=== PATIENT | male | born 1945 | race Caucasian/White ===

== ENCOUNTER 2017-07-17 23:13 | Inpatient (IN) ==
[2017-07-17] MEDS ORDERED: 0.9 % Sodium Chloride 500 ML IVC ONE (23:22)
[2017-07-17] MEDS ORDERED: Nitroglycerin 0.4 MG TAB.SUBL SL ONE (23:22)
[2017-07-17] MEDS ORDERED: Nitroglycerin 0.4 MG TAB.SUBL SL STA (23:22)
--- NOTE | 2017-07-17 23:26 | Emergency Department Note ---
Disposition Clinical Impression: NSTEMI (non-ST elevated myocardial infarction) Disposition: Admitted As Inpatient Condition: Fair Time of Disposition: 01:14 Chest Pain HPI - General Stated Complaint: chest pain Time Seen by Provider: 07/17/17 23:22 Source: patient, EMS Mode of arrival: EMS Limitations: no limitations Vital Signs Reviewed: Yes Nursing Notes Reviewed: Yes - History of Present Illness HPI Narrative: Patient presents to the ED the chief complaint of chest pain. Patient reports that his chest pain was onset about 3 days ago. Describes it as a deep pressure and ache in the middle of his chest that radiates to bilateral arms. Associated with nausea and diaphoresis and fatigue. No fever, chills, shortness of breath, abdominal pain, vomiting or diarrhea. No rash or pain or swelling in his legs. No history of coronary artery disease in the past. Does have hypertension, diabetes and smokes. Also states that he fell last week down several stairs at his home and landed flat on his back. States he thought his pain may have been coming from that, but the pain was occurring even at rest. No numbness, weakness or tingling in his extremities. No headache, changes in vision or neck pain. - Related Data Home Medications Medication Instructions Recorded Confirmed Aspirin 03/17/17 Atorvastatin 03/17/17 Citalopram 03/17/17 Dicyclomine 03/17/17 Hydrocodone-Acetamin 5-163/7.5 03/17/17 Hydroxyzine HCl 03/17/17 Lisinopril 03/17/17 Tizanidine HCl 03/17/17 Ventolin Hfa 03/17/17 Zantac 03/17/17 Previous Rx's Medication Instructions Recorded GuaiFENesin/Dextromethorphan [Gs 5 ml PO QID #118 ml 03/17/17 Tussin Dm Max Liquid] Montelukast [Singulair] 10 mg PO DAILY #30 tablet 03/17/17 PredniSONE [Deltasone] 20 mg PO DAILY #12 tablet 03/17/17 levoFLOXacin [Levaquin] 500 mg PO DAILY #10 tablet 03/17/17 Allergies Allergy/AdvReac Type Severity Reaction Status Date / Time Penicillins Allergy Itching Verified 03/17/17 14:10 Review of Systems: As reviewed in the HPI. All other systems reviewed are negative or normal. Chest Pain PMH - Past Medical History Medical history: Reports: COPD Surgical history: Reports: non-contributory - Social History Smoking Status: Current every day smoker Alcohol use: Reports: none Drug use: Reports: none Physical Exam - General Limitations: no limitations General appearance: alert, in no apparent distress - Head Head exam: atraumatic, normocephalic, normal inspection - ENT ENT exam: normal exam, normal oropharynx, mucous membranes moist - Neck Neck exam: Present: normal inspection, full ROM, trachea midline - Chest Chest inspection: Present: normal inspection, symmetric chest wall rise - Respiratory Respiratory exam: Present: normal lung sounds bilaterally - Cardiovascular Cardiovascular exam: Present: tachycardia, normal heart sounds - Abdominal Exam Abdominal exam: Present: soft, Non-Tender. Absent: tenderness, distention, guarding, rebound, rigidity - Extremities Exam Extremities exam: Present: normal inspection, full ROM. Absent: tenderness, pedal edema Course Course Narrative: Patient presenting with chest pain. Initial EKG via EMS. Did show some concerning ischemic changes inferiorly which have since resolved after nitroglycerin. His pain is currently a 4. We will re-dose nitroglycerin this evening get him pain-free. Cardiac workup initiated. Patient will be admitted. We will repeat an EKG is his chest pain worsens or does not improve. - Reevaluation(s) Reevaluation #1: Patient starting having chest pain again. Repeat EKG ordered. Will start on heparin and nitro gtt. Time: 00:46 Reevaluation #2: Repeat EKG did not meet STEMI criteria, but does have some ST depression inf. Troponin came back elevated at 1.40. Time: 01:12 Vital Signs Temperature 98.9 F 07/17/17 23:16 Pulse Rate 101 07/17/17 23:16 Respiratory Rate 20 07/17/17 23:16 Blood Pressure 135/66 07/17/17 23:16 O2 Sat by Pulse Oximetry 94 07/17/17 23:16 Temperature 98.4 F 07/18/17 02:15 Pulse Rate 73 07/18/17 03:44 Respiratory Rate 18 07/18/17 02:15 Blood Pressure 122/64 07/18/17 03:44 O2 Sat by Pulse Oximetry 96 07/18/17 02:15 Oxygen Delivery Oxygen Delivery Room Air Chest Pain - Medical Records Medical records reviewed: Yes I reviewed the patient's medical records. - Lab Data Lab results reviewed: Yes I reviewed the patient's lab results. Result diagrams: 07/18/17 00:40 07/18/17 00:40 Lab Results 07/18/17 07/18/17 07/18/17 Range/Units 00:40 00:40 00:40 WBC 9.4 (4.3-11.1) K/mcL RBC 3.94 L (4.19-5.50) M/mcL Hgb 12.5 L (12.9-16.9) g/dL Hct 37.8 (37.5-50.1) % MCV 95.9 (83.0-100.0) fL MCH 31.7 (28.0-33.3) pg MCHC 33.1 (31.6-35.5) g/dL RDW 13.6 (11.5-14.5) % Plt Count 132 L (140-400) K/mcL MPV 10.7 (9.4-12.4) fL Immature Gran % 0.2 (0-4) % Seg Neutrophils % 68.4 % Lymphocytes % 20.8 % Monocytes % 7.9 % Eosinophils % 2.3 % Basophils % 0.4 % Neutrophils # 6.4 (1.6-8.9) K/mcL Lymphocytes # 2.0 (0.6-4.6) K/mcL Monocytes # 0.7 (0.0-1.3) K/mcL Eosinophils # 0.2 (0.0-0.6) K/mcL Basophils # 0.0 (0.0-0.2) K/mcL PT 11.1 (9.4-12.1) Seconds INR 1.0 APTT 24.0 L (26.0-36.0) Seconds D-Dimer 647 H (0-500) ng/mLFEU Sodium (136-145) mEq/L Potassium (3.5-5.1) mEq/L Chloride (98-107) mEq/L Carbon Dioxide (23-29) mEq/L BUN (8-23) mg/dL Creatinine (0.70-1.30) mg/dL Est GFR ( Amer) (> 60) Est GFR (Non-Af Amer) (> 60) BUN/Creatinine Ratio (6-26) Glucose (70-105) mg/dL Calculated Osmolality (280-300) Calcium (8.6-10.3) mg/dL Troponin I (< 0.04) ng/mL 07/18/17 Range/Units 00:40 WBC (4.3-11.1) K/mcL RBC (4.19-5.50) M/mcL Hgb (12.9-16.9) g/dL Hct (37.5-50.1) % MCV (83.0-100.0) fL MCH (28.0-33.3) pg MCHC (31.6-35.5) g/dL RDW (11.5-14.5) % Plt Count (140-400) K/mcL MPV (9.4-12.4) fL Immature Gran % (0-4) % Seg Neutrophils % % Lymphocytes % % Monocytes % % Eosinophils % % Basophils % % Neutrophils # (1.6-8.9) K/mcL Lymphocytes # (0.6-4.6) K/mcL Monocytes # (0.0-1.3) K/mcL Eosinophils # (0.0-0.6) K/mcL Basophils # (0.0-0.2) K/mcL PT (9.4-12.1) Seconds INR APTT (26.0-36.0) Seconds D-Dimer (0-500) ng/mLFEU Sodium 139 (136-145) mEq/L Potassium 4.0 (3.5-5.1) mEq/L Chloride 108 H (98-107) mEq/L Carbon Dioxide 22 L (23-29) mEq/L BUN 17 (8-23) mg/dL Creatinine 1.18 (0.70-1.30) mg/dL Est GFR ( Amer) > 60 (> 60) Est GFR (Non-Af Amer) > 60 (> 60) BUN/Creatinine Ratio 14 (6-26) Glucose 166 H (70-105) mg/dL Calculated Osmolality 293 (280-300) Calcium 8.8 (8.6-10.3) mg/dL Troponin I 1.40 H* (< 0.04) ng/mL - Radiology Data Radiology results reviewed: Yes I reviewed the patient's radiology results. - EKG Data EKG attestation: Yes I reviewed and interpreted this EKG. EKG results narrative: Initial EKG@2319 shows sinus tach with PVCs, rate 102, NE interval 180, QRS 118 , QTC 411, left axis deviation, left anterior fascicular block, no acute ischemic changes. The EMS EKG did show some ischemic changes inferiorly which have since resolved after nitroglycerin. Heart Score - Score History: Highly Suspicious EKG: Significant ST-Depression Age: Greater than 65 Risk Factors: Equal/Greater than 3 risk factor or history of atherosclerotic disease Troponin: Greater than 3x normal limit HEART Score Total: 10 Critical Care Time Critical Care Time: Yes Total Critical Care Time: 30 Attestation: I personally spent ___30___ minutes devoted to the care of this critically ill patient. This time excludes the time for billable procedures. Guille.Sharron - Jennifer Situation: Demographics, MOA Background: Presenting Complaint, Relevant PMH, Meds, & Allergies Assessment: Vital Signs, Course and respsone to treatment, Exam Concerns, Patient/Family Expectation, Pertinant Lab Results, Outstanding Labs Recommendation: Recommendation based on pending studies, treatments, or consults S.B.ACarmenza Report Given to: Dr. Madan Rodriguez Repor Time: 01:14 Attestation Statement - Attestation Attestation: I examined this patient and my medical decision-making was reviewed with the Resident Physician. I agree with the documented findings, disposition and treatment plan as described except to the extent set forth below.
[2017-07-18 00:50] LABS: Basophils % 0.4 %; Eosinophils # 0.2 K/mcL (0.0-0.6); Eosinophils % 2.3 %; Hematocrit 37.8 % (37.5-50.1); Hemoglobin 12.5 g/dL (12.9-16.9); Immature Granulocytes % 0.2 % (0-4); Lymphocytes % 20.8 %; Mean Corpuscular HGB Conc 33.1 g/dL (31.6-35.5); Mean Corpuscular Hemoglobin 31.7 pg (28.0-33.3); Mean Corpuscular Volume 95.9 fL (83.0-100.0); Mean Platelet Volume 10.7 fL (9.4-12.4); Monocytes # 0.7 K/mcL (0.0-1.3); Monocytes % 7.9 %; Neutrophils # 6.4 K/mcL (1.6-8.9); Platelet Count 132 K/mcL (140-400); Red Blood Count 3.94 M/mcL (4.19-5.50); Red Cell Distribution Width 13.6 % (11.5-14.5); Segmented Neutrophils % 68.4 %
[2017-07-18] MEDS ORDERED: *HR* Heparin 5,000 UNIT/ML VIAL IVP ONE (00:51)
[2017-07-18 00:57] LABS: Prothrombin Time 11.1 Seconds (9.4-12.1)
[2017-07-18] MEDS ORDERED: Heparin 25,000 UNIT/500 ML D5W 25,000 UNIT/500 ML BAG IVC SCH (01:00)
[2017-07-18 01:07] LABS: BUN/Creatinine Ratio 14 (6-26); Blood Urea Nitrogen 17 mg/dL (8-23); Calcium 8.8 mg/dL (8.6-10.3); Carbon Dioxide 22 mEq/L (23-29); Chloride 108 mEq/L (98-107); Glucose 166 mg/dL (70-105); Osmolality,Calculated 293 (280-300); Sodium 139 mEq/L (136-145); eGFR For African Americans > 60 (> 60); eGFR For Non-African Americans > 60 (> 60)
[2017-07-18] MEDS: Nitroglycerin 25 MG/250 ML INFUS..BTL IVC SCH (01:13)
[2017-07-18] MEDS ORDERED: D5% in Water 1,000 ML IVC PRN ×2 (01:34→13:46)
[2017-07-18] MEDS ORDERED: Dextrose Gel 15 GM/37.5 ML TUBE PO PRN ×2 (01:34)
[2017-07-18] MEDS ORDERED: *HR* Dextrose 50 % in Water (Syg) 50 ML SYRINGE IVP PRN (01:34)
[2017-07-18] MEDS ORDERED: tiZANidine 4 MG TABLET PO PRN (01:34)
[2017-07-18] MEDS ORDERED: Ipratropium/Albuterol Neb 3 ML IH PRN (01:35)
[2017-07-18] MEDS ORDERED: Naloxone 0.4 MG/ML INJ IVP PRN (01:37)
--- NOTE | 2017-07-18 01:44 | Internal Med History&Physical ---
Date of Encounter: 07/18/17 Time of Encounter: 01:42 Internal Medicine - H&P: HPI Chief complaint: chest pain History of present illness: Mr. Piper is a 71 year old male with history of hypertension, COPD who smokes one half pack per day for more than 50 years, diabetes type 2 reported to be diet controlled who presents with an STEMI. He presents with chest pain with onset over the weekend. Described as sternal in location, sharp pressure-like sensation, 8-9 out of 10 at its worse, associated with bilateral arm soreness, frequency of every hour or two, lasting for 15-20 minutes each time, no associated with rest or exertion. Presented to the ED. Today because of persistent symptoms that is not improving. In the ED pain improve with nitroglycerin and heparin drip, bringing it down to a 4 out of 10 On review he reports falling down the stairs in the last week EKG personally reviewed with rate 76, ST-T depression most prominent in the inferior lateral leads. XR/XR chest 1V portable IMPRESSION: Cardiomegaly with clear lungs. Past Med Surg Social Fam HX - Past Medical History Medical history: COPD Psychiatric history: no psych history - Past Surgical History Surgical History: non-contributory - Social History Smoking Status: Current every day smoker Smokeless Tobacco Status: No Alcohol use: none Drug use: none Internal Medicine - H&P: Meds Aspirin 03/17/17 [History] Atorvastatin 03/17/17 [History] Citalopram 03/17/17 [History] Dicyclomine 03/17/17 [History] GuaiFENesin/Dextromethorphan [ Laly Dm Max Liquid] 5 ml PO QID #118 ml 03/17 [Rx] Hydrocodone-Acetamin 5-163/7.5 03/17/17 [History] Hydroxyzine HCl 03/17/17 [History] Lisinopril 03/17/17 [History] Montelukast [Singulair] 10 mg PO DAILY #30 tablet 03/17/17 [Rx] PredniSONE [Deltasone] 20 mg PO DAILY #12 tablet 03/17/17 [Rx] Tizanidine HCl 03/17/17 [History] Ventolin Hfa 03/17/17 [History] Zantac 03/17/17 [History] levoFLOXacin [Levaquin] 500 mg PO DAILY #10 tablet 03/17/17 [Rx] 3 Allergy/AdvReac Type Severity Reaction Status Date / Time Penicillins Allergy Itching Verified 03/17/17 14:10 All Systems PM: A 10-system review of systems was performed and is negative for pertinent findings except as documented above in the HPI. Review of systems: ROS 14 point review of systems reviewed as best as possible given presentation. Pertinent positive or negative as per HPI or otherwise reviewed as negative - Constitutional Vitals: Temp Pulse Resp BP Pulse Ox 98.9 F 72 16 139/63 93 07/17/17 23:16 07/18/17 00:28 07/18/17 01:32 07/18/17 01:32 07/18/17 00:28 Exam: General - AAO x 3 Psych - Appropriate affect/speech. No agitation Eyes - KRIS. Eye lids intact. No scleral icterus Heart - Sinus. RRR. S1 and S2 present. No added HS/murmurs appreciated. No elevated JVD appreciated. Lung - Adequate air entry b/l, No crackles/wheezes appreciated GI - Soft, non-tender. No hepatosplenomegaly/ascites. BS+ - No CVA/suprapubic tenderness or palpable bladder distension Skin - Intact. No rash/petechiae/ecchymosis. Warm extremities Internal Med - H&P Results - Labs CBC & Chem 7: 07/18/17 00:40 07/18/17 00:40 - Impressions ITS Impressions Chest X-Ray 07/18/17 23:22 IMPRESSION: Cardiomegaly with clear lungs. D/ / Tera Vieira MD / Tera Vieira MD Interpreting Provider: Tera Vieira MD - Assessment and plan (1) NSTEMI (non-ST elevated myocardial infarction) Current Visit: Yes Status: Acute Assessment and plan: troponemia, trend trop repeat EKG in a.m TTE card eval for C heparin and nitro gtt for now ASA add metoprolol (2) COPD (chronic obstructive pulmonary disease) Current Visit: Yes Status: Acute Assessment and plan: chronic Qualifiers: COPD type: chronic bronchitis Qualified Code(s): J41.0 - Simple chronic bronchitis (3) Tobacco abuse Current Visit: Yes Status: Acute Assessment and plan: nicotine patch cessation recommended (4) HTN (hypertension) Current Visit: Yes Status: Acute Assessment and plan: adjust cardiac meds as appropriate Qualifiers: Hypertension type: essential hypertension Qualified Code(s): I10 - Essential (primary) hypertension (5) DMII (diabetes mellitus, type 2) Current Visit: Yes Status: Acute Assessment and plan: reports to be diet controlled Check A1c and monitor CBG Qualifiers: Diabetes mellitus senior living insulin use: without senior living use Qualified Code(s): E11.9 - Type 2 diabetes mellitus without complications - Time Spent With Patient Total time spent is greater than 50% in coordination of care (as documented) at patient's floor/unit and/or counseling patient:
[2017-07-18] MEDS: 0.9 % Sodium Chloride 1,000 ML IVC SCH ×2 (03:31→21:04)
[2017-07-18] MEDS: Nicotine 21 MG PATCH.TD24 TD SCH ×2 (03:35→10:13)
--- NOTE | 2017-07-18 04:08 | Emergency Department Note ---
Disposition Clinical Impression: NSTEMI (non-ST elevated myocardial infarction) Disposition: Admitted As Inpatient Condition: Fair General Adult HPI - General Chief complaint: ED Chest Pain Stated complaint: chest pain Time Seen by Provider: 07/17/17 23:22 Source: patient, EMS Mode of arrival: EMS Limitations: no limitations - History of Present Illness Pain Scale: 0 - Related Data Home Medications Medication Instructions Recorded Confirmed Aspirin 03/17/17 Atorvastatin 03/17/17 Citalopram 03/17/17 Dicyclomine 03/17/17 Hydrocodone-Acetamin 5-163/7.5 03/17/17 Hydroxyzine HCl 03/17/17 Lisinopril 03/17/17 Tizanidine HCl 03/17/17 Ventolin Hfa 03/17/17 Zantac 03/17/17 Previous Rx's Medication Instructions Recorded GuaiFENesin/Dextromethorphan [Gs 5 ml PO QID #118 ml 03/17/17 Tussin Dm Max Liquid] Montelukast [Singulair] 10 mg PO DAILY #30 tablet 03/17/17 PredniSONE [Deltasone] 20 mg PO DAILY #12 tablet 03/17/17 levoFLOXacin [Levaquin] 500 mg PO DAILY #10 tablet 03/17/17 Allergies Allergy/AdvReac Type Severity Reaction Status Date / Time Penicillins Allergy Itching Verified 03/17/17 14:10 Past Medical History - Past Medical History Medical history: Reports: COPD Surgical history: Reports: non-contributory Psychiatric history: Reports: no psych history - Social History Smoking Status: Current every day smoker Smokeless Tobacco Status: No Alcohol use: Reports: none Drug use: Reports: none Physical Exam - General Limitations: no limitations General appearance: alert, in no apparent distress Course Vital Signs Temperature 98.9 F 07/17/17 23:16 Pulse Rate 101 07/17/17 23:16 Respiratory Rate 20 07/17/17 23:16 Blood Pressure 135/66 07/17/17 23:16 O2 Sat by Pulse Oximetry 94 07/17/17 23:16 Temperature 98.4 F 07/18/17 02:15 Pulse Rate 73 07/18/17 03:44 Respiratory Rate 18 07/18/17 02:15 Blood Pressure 122/64 07/18/17 03:44 O2 Sat by Pulse Oximetry 96 05/30/18 02:15 Oxygen Delivery Oxygen Delivery Room Air Medical Decision Making - Lab Data Result diagrams: 07/18/17 00:40 07/18/17 00:40 Lab Results 07/18/17 07/18/17 07/18/17 Range/Units 00:40 00:40 00:40 WBC 9.4 (4.3-11.1) K/mcL RBC 3.94 L (4.19-5.50) M/mcL Hgb 12.5 L (12.9-16.9) g/dL Hct 37.8 (37.5-50.1) % MCV 95.9 (83.0-100.0) fL MCH 31.7 (28.0-33.3) pg MCHC 33.1 (31.6-35.5) g/dL RDW 13.6 (11.5-14.5) % Plt Count 132 L (140-400) K/mcL MPV 10.7 (9.4-12.4) fL Immature Gran % 0.2 (0-4) % Seg Neutrophils % 68.4 % Lymphocytes % 20.8 % Monocytes % 7.9 % Eosinophils % 2.3 % Basophils % 0.4 % Neutrophils # 6.4 (1.6-8.9) K/mcL Lymphocytes # 2.0 (0.6-4.6) K/mcL Monocytes # 0.7 (0.0-1.3) K/mcL Eosinophils # 0.2 (0.0-0.6) K/mcL Basophils # 0.0 (0.0-0.2) K/mcL PT 11.1 (9.4-12.1) Seconds INR 1.0 APTT 24.0 L (26.0-36.0) Seconds D-Dimer 647 H (0-500) ng/mLFEU Sodium (136-145) mEq/L Potassium (3.5-5.1) mEq/L Chloride (98-107) mEq/L Carbon Dioxide (23-29) mEq/L BUN (8-23) mg/dL Creatinine (0.70-1.30) mg/dL Est GFR ( Amer) (> 60) Est GFR (Non-Af Amer) (> 60) BUN/Creatinine Ratio (6-26) Glucose (70-105) mg/dL Calculated Osmolality (280-300) Calcium (8.6-10.3) mg/dL Troponin I (< 0.04) ng/mL 07/18/17 Range/Units 00:40 WBC (4.3-11.1) K/mcL RBC (4.19-5.50) M/mcL Hgb (12.9-16.9) g/dL Hct (37.5-50.1) % MCV (83.0-100.0) fL MCH (28.0-33.3) pg MCHC (31.6-35.5) g/dL RDW (11.5-14.5) % Plt Count (140-400) K/mcL MPV (9.4-12.4) fL Immature Gran % (0-4) % Seg Neutrophils % % Lymphocytes % % Monocytes % % Eosinophils % % Basophils % % Neutrophils # (1.6-8.9) K/mcL Lymphocytes # (0.6-4.6) K/mcL Monocytes # (0.0-1.3) K/mcL Eosinophils # (0.0-0.6) K/mcL Basophils # (0.0-0.2) K/mcL PT (9.4-12.1) Seconds INR APTT (26.0-36.0) Seconds D-Dimer (0-500) ng/mLFEU Sodium 139 (136-145) mEq/L Potassium 4.0 (3.5-5.1) mEq/L Chloride 108 H (98-107) mEq/L Carbon Dioxide 22 L (23-29) mEq/L BUN 17 (8-23) mg/dL Creatinine 1.18 (0.70-1.30) mg/dL Est GFR ( Amer) > 60 (> 60) Est GFR (Non-Af Amer) > 60 (> 60) BUN/Creatinine Ratio 14 (6-26) Glucose 166 H (70-105) mg/dL Calculated Osmolality 293 (280-300) Calcium 8.8 (8.6-10.3) mg/dL Troponin I 1.40 H* (< 0.04) ng/mL Attestation Statement - Attestation Attestation: I examined this patient and my medical decision-making was reviewed with the Resident Physician. I agree with the documented findings, disposition and treatment plan as described except to the extent set forth below. 71-year-old male presents ED because recurrent chest pain. He has had substernal chest pain off the past 12-14 hours. Symptoms worsen tonight prompting him to come to the ED. Pain radiating into the right arm. No diaphoresis. Does complain of dyspnea with exertion. Complains of nausea but no vomiting. He was given sublingual nitroglycerin per EMS with transient relief. No fevers or chills. No productive cough. Patient is a pack-a-day smoker for about 50 years. Patient is awake alert and oriented. No apparent physiologic distress. Chest wall is nontender. Lungs are clear to auscultation bilaterally. Trachea is midline. Abdomen soft, nondistended and nontender. Extremity is warm and dry without edema or calf tenderness. EKG exhibit's ST depression along the high lateral leads suggestive of acute ischemia. He had recurring pain on the ED and was started on IV nitroglycerin and heparin. Initial troponin Was elevated to 1.5 The high probability of a clinically significant, sudden or life threatening deterioration of the [cardiovascular] system(s) required my full and direct attention, intervention and personal management. The aggregate critical care time was [32] minutes. This time is in addition to time spent performing reported procedures but includes the following: [x] Data Review and interpretation [x] Patient assessment and monitoring of vital signs [x] Documentation [x] Medication orders and management
[2017-07-18] MEDS ORDERED: Acetaminophen 325 MG TABLET PO PRN (05:57)
[2017-07-18 08:35] LABS: Estimated Average Glucose 160 mg/dl; Hemoglobin A1C 7.2 %
[2017-07-18] MEDS ORDERED: 0.9 % Sodium Chloride 1,000 ML ONE ×2 (08:35→09:15)
[2017-07-18] MEDS ORDERED: Verapamil 5 MG/2 ML VIAL ONE (08:35)
[2017-07-18] MEDS ORDERED: Nitroglycerin 1,000 MCG/10 ML VIAL IV ONE (08:36)
[2017-07-18] MEDS ORDERED: ISOVUE-370 200 ML INFUS..BTL IV ONE ×2 (08:36→09:16)
[2017-07-18] MEDS ORDERED: Heparin 1,000 UNITS/500 mL 500 ML ONE (08:36)
[2017-07-18] MEDS ORDERED: *HR* Heparin 10,000 UNIT/10 ML VIAL ONE (08:36)
--- NOTE | 2017-07-18 08:38 | Cardiology Consult Note ---
<Valdez Jose - Last Filed: 07/18/17 08:20> Date of Encounter: 07/18/17 Time of Encounter: 08:20 Assessment and Plan (1) NSTEMI (non-ST elevated myocardial infarction) Current Visit: Yes Status: Acute C/o continued chest pressure, diaphoresis, and SOB. EKG changes concerning for ischemia in anterio/lateral leads. LHC is recommended for further evaluation. Cardiac risk factors include heavy tobacco use, HTN, DM type II, and PVD. LHC R/B/A discussed and he agrees to proceed. Continue heparin gtt. Asa, statin. Hold BB, HR in the 50's. (2) Tobacco abuse Current Visit: Yes Status: Acute Smoking cessation discussed. Smokes 1.5 pk day for 56 years. (3) HTN (hypertension) Current Visit: Yes Status: Acute B/p acceptable. Qualifiers: Hypertension type: essential hypertension Qualified Code(s): I10 - Essential (primary) hypertension (4) DMII (diabetes mellitus, type 2) Current Visit: Yes Status: Acute Qualifiers: Diabetes mellitus custodial insulin use: without long winder tender use Qualified Code(s): E11.9 - Type 2 diabetes mellitus without complications Discussion w patient/family: The assessment and plan as outlined above was discussed with the patient and/or family members who expressed understanding and agreement. All questions were answered. Thank you for involving us in the care of your patient. Please call with any questions. History of Present Illness Consult date: 07/18/17 Requesting physician: Jesus Gil Consult reason: NSTEMI Chief complaint: Chest pain, SOB, diaphoresis History of present illness: Mr. Piper is a 71 year old male with past medical history of DM type II, HTN, HLD, COPD, and PVD who presents from home with the c/o right sided chest pressure. States that his chest pain increased over the past three days. His pain feels like a heavy pressure over his right chest. He has pain in his bilateral arms and associates his pain with SOB and diaphoresis. His work-up revealed elevated troponin up to 1.4. Initial ekg showed SR with mild ST depression in the anterior leads. Overnight he developed increased chest pain and re-peat EKG showed ST depression in the lateral leads and T/ST wave changes in the inferior leads. On my exam he continues to have chest pressure and is diaphoretic. He is currently being treated with NTG GTT IV and heparin gtt. Past Med Surg Social Fam HX - Past Medical History Attestation: Yes The following information was validated with the patient. Medical history: diabetes, hyperlipidemia, hypertension Psychiatric history: no psych history - Past Surgical History Surgical History: non-contributory - Social History Smoking Status: Current every day smoker Packs per day: 1.5 Smokeless Tobacco Status: No Alcohol use: none Drug use: none - Family History Mother Name: Yasmin Piper Living Status: Age at : 87 Cause of : NC and cancer Hx Family Cardiac Disorders: Yes Hx Family Cancer: Yes (throat cancer) Medications and Allergies Albuterol Sulfate [Albuterol Inhaler] 2 puff IH Q4H PRN 07/18/17 [History] Atorvastatin [Lipitor] 40 mg PO HS 07/18/17 [History] Citalopram Hydrobromide [Citalopram HBr] 40 mg PO DAILY 07/18/17 [History] Dicyclomine [Bentyl] 10 mg PO QID 07/18/17 [History] HYDROcodone/Acet 7.5/325 mg [[place] 7.5-325 mg] 1 tab PO QID 07/18/17 [History] Lisinopril [Lisinopril] 2.5 mg PO DAILY 07/18/17 [History] 3 Allergy/AdvReac Type Severity Reaction Status Date / Time Penicillins Allergy Itching Verified 07/18/17 08:36 All Systems Review: The remainder of the systems were reviewed and are negative Physical Examination Vital Signs, Last 4 Hours Temp Pulse Resp BP Pulse Ox 07/18/17 07:13 59 128/65 07/18/17 06:45 97.9 F 56 14 117/77 100 07/18/17 06:42 168/80 07/18/17 05:47 59 141/59 07/18/17 05:32 98.4 F 61 118/65 General: Conversant, Other (ill appearing, diaphoretic) HEENT: Atraumatic, Normocephaly, Mucus Membranes Moist Neck: No JVD, Normal carotid pulses Cardiac: Reg Rate and Rhythm, Normal S1 and S2, No Murmur Lungs: Normal Breath Sounds, No Wheeze, Rales, Rhonchi Neuro: Alert and responsive, No focal deficits noted Abdomen: Soft, Non-Tender Skin: No rashes noted on visualized skin Musculoskeletal: No Chest Wall Tenderness Extremities: No Clubbing, No Cyanosis, No Edema, Normal Pulses Results 07/18/17 00:40 07/18/17 00:40 - EKG Interpretation EKG results cardiology: personally reviewed Consult Discharge Plan - Plan Referrals: Ranjana Becerra, UNIT COORDINATOR [Primary Care Provider] - <Carlos Sosa - Last Filed: 07/18/17 10:48> Date of Encounter: 07/18/17 - Attending Attestation I have personally performed a face to face evaluation on this patient. I have reviewed and agree with the care plan. History and Exam by me shows: 71 YOM s/p PCI to the RCA after a NSTEMI with peak trop 17 Chest pain free doing well May consider PE work up Assessment and Plan Discussion w patient/family: The assessment and plan as outlined above was discussed with the patient and/or family members who expressed understanding and agreement. All questions were answered. Thank you for involving us in the care of your patient. Please call with any questions. History of Present Illness History of present illness: Mr. Piper is a 71 year old male All Systems Review: The remainder of the systems were reviewed and are negative Physical Examination Vital Signs, Last 4 Hours Temp Pulse Resp BP Pulse Ox 07/18/17 10:20 56 17 133/82 100 07/18/17 10:00 97.4 F L 61 16 129/67 99 07/18/17 07:13 59 128/65 Results 07/18/17 00:40 07/18/17 00:40 Lab Results 07/18/17 07/18/17 07:42 07:42 APTT 42.0 H D Troponin I 17.32 H*
[2017-07-18] MEDS ORDERED: *HR* FentaNYL (PF) 100 MCG/2 ML VIAL ONE ×2 (08:48→09:26)
[2017-07-18] MEDS ORDERED: *HR* Midazolam HCl 2 MG/2 ML VIAL ONE ×2 (08:49→09:00)
--- NOTE | 2017-07-18 08:52 | Pre-Sedation Evaluation ---
Pre-sedation evaluation - Pre-sedation checklist Date of procedure: 07/18/17 Procedure: Heart cath Recent Vitals: Last Vital Signs Temp 97.9 F 07/18/17 06:45 Pulse 59 07/18/17 07:13 Resp 14 07/18/17 06:45 BP 128/65 07/18/17 07:13 Pulse Ox 100 07/18/17 06:45 H&P (including ROS) documented in medical record: Yes Previous reaction to sedatives/anesthetics: No Dietary Status: NPO after Midnight Dentition: No loose teeth or bridges ASA Classification *see protocol: CLASS II-Mild systemic disease Plan of Care: Pt appropriate candidate for procedure/moderate/conscious sedation , Risks/benefits of procedure/sedation discussed w/ patient/family
[2017-07-18] MEDS ORDERED: Tirofiban 12.5 MG/250ML 12.5 MG/250 ML BAG ONE (09:10)
[2017-07-18] MEDS ORDERED: *HR* Ticagrelor 90 MG TABLET ONE (09:41)
[2017-07-18] MEDS ORDERED: *HR* HYDROcodone/Acet 5/325 mg TABLET PO PRN (09:41)
[2017-07-18] MEDS ORDERED: Tirofiban 12.5 MG/250ML 12.5 MG/250 ML BAG IVC SCH (09:45)
--- NOTE | 2017-07-18 09:45 | Event Note ---
Date of Encounter: 07/18/17 Time of Encounter: 09:45 - Cardiology Event Note sp PCI RCA LOREN x 3 overlapping. No LV gram, contrast given 75cc. If clinical suspicion persists for PE, limited contrast given so CT PE protocol can be done today. Heparin drip can be resumed immediately if PE as intervention was transradial. Brilinta and aggrastat given. Fu in clinic with me.
--- NOTE | 2017-07-18 10:11 | Invasive Diagnostic Lab Proc ---
Name: Castro Piper Date of Study: 07/18/2017 Date: 1945 Ht: 72.8in Medical Record#: [id number] Age: 71 Wt: 251.33lb Gender: Male BSA: 2.37 Order #: [id number] BMI: 33.31 Physicians Procedure Physician: Hao Castañeda MD, [facility] Referring MD: Referring MD: Staff Name Position Time In Tiana Abbott RN Anatomy Teacher 08:48 AM Yared Perales RN Monitor 08:48 AM Marta Morton RT (R) Scrub 08:48 AM Indications Indication Non-Stemi Procedures Performed Procedure L HRT ARTERY/VENTRICLE ANGIO PRQ CARD BM STENT W/ANGIO 1 VSL Pre-Procedure Checklist Informed consent is complete signed and on chart. H&P is on chart. ID band is on and ID verified with patient. Patient NPO for procedure The procedure was described for the patient and questions were answered. ECG is on chart. Rhythm: NSR Plan of Care Patient will tolerate the procedure without complications. Adequate level of comfort will be maintained. Hemodynamics will remain stable Patient will recover from procedure without complications. Respiratory function will be maintained. Cardiac rhythm will remain stable. Patient temperature will be maintained. Patient and/or family have verbalized understanding of the procedure. Patient Education Chief Complaint/Reason for Test: Cardiac Cath Developmental Category: Geriatric (65+ years) Developmentally Appropriate for Age: Yes Learning Barriers: None Education Needs: Procedure Education Method: Verbal Information Taught: Cardiac Cath Educational Evaluation: Able to repeat information Intravenous Access Time IV Size Location DC'd Fluid/Drip Rate Units RN 18g 1 1/4" Patent On Arrival Lt Hand 0.9NaCl 25 ml/hr Tiana Abbott RN 18g 1 1/4" Patent On Arrival Rt Antecubital Allergies Penicillins Penicillin Tetracycline TERAMYCIN Vital Signs Time BP (mmHg) HR (bpm) O2 Sat. RR (bpm) LOC 08:46 AM / % 5 = Fully awake and oriented or at pre-proc level 08:46 AM / % 4 = Oriented but drowsy 08:48 AM 161 / 83 70 98 % 16 08:53 AM 145 / 75 69 93 % 12 08:58 AM 139 / 73 69 93 % 22 09:03 AM 100 / 85 65 92 % 23 09:08 AM 114 / 63 68 95 % 17 09:13 AM 133 / 69 66 97 % 15 09:18 AM 124 / 61 68 95 % 13 09:23 AM 132 / 69 66 93 % 12 09:28 AM 125 / 69 69 93 % 20 09:33 AM 136 / 50 67 96 % 13 Procedural Medications Time Medication Dose Units Method Given By 08:48 AM Oxygen 2 L/min nasal cannula Tiana Abbott RN 08:49 AM Versed 2 mg Intravenous [place]Tiana singh RN 08:49 AM Fentanyl 50 mcg Intravenous MilenaTiana singh RN 08:58 AM Lidocaine 2% 3 ml Subcutaneous Hao Castañeda MD, FAC 08:59 AM Heparin 4000 units Nitroglycerin 200 mcg Verapamil 2.5 mg Intraarterial Hao Castañeda MD, FACC 09:00 AM Versed 1 mg Intravenous [place]iana singh RN 09:01 AM Fentanyl 25 mcg Intravenous Tiana Abbott RN 09:11 AM Aggrastat Bolus: 58.5 ml Intravenous MilenaTiana singh RN 09:11 AM Fentanyl 25 mcg Intravenous Tiana Abbott RN 09:13 AM Aggrastat 12.5mg/250ml 21 ml Intravenous MilenaTiana singh RN 09:14 AM Heparin 3000 units Intravenous Tiana Abbott RN 09:16 AM Nitroglycerin 200 mcg Intracoronary Hao Castañeda MD 09:21 AM Nitroglycerin 200 mcg Intracoronary Hao Castañeda MD 09:24 AM Versed 1 mg Intravenous MilenaTiana singh RN 09:25 AM Fentanyl 25 mcg Intravenous MilenaTiana singh RN 09:31 AM Fentanyl 25 mcg Intravenous Tiana Abbott RN 09:33 AM Fentanyl 25 mcg Intravenous Tiana Abbott RN 09:34 AM Nitroglycerin 150 mcg Intraarterial Hao Castañeda MD 09:39 AM Brilinta 180 mg Orally Tiana Abbott RN ASA Classification: CLASS II- Mild systemic disease (i.e. well-controlled diabetes, hypertension, asthma, cigarette smoking) Marcel Score Preprocedure Postprocedure Activity 2- Moves 4 extremities sustained head lift Activity Circulation 2- SBP +/= 20 points of pre-anesthetic level Circulation Consciousness 2- Awake and alert oriented x 3 Consciousness O2 Saturation 2- Able to maintain O2 satruation of 92% on room air O2 Saturation Respiratory 2- Able to deep breathe and cough well Respiratory Total Score 10 Total Score Contrast Agent: Isovue Diagnostic Contrast: 76 ml Total Contrast: 76 ml Fluoro Dose: 918 mGy Activated Clotting Time Time Seconds to Clot 09:13 AM 159 Procedure Log Time Note Enter By 08:22 AM CathStat 08:45 AM Pt arrived to dental laboratory manager 1 at 08:45 cedwards 08:45 AM Patient charges- Angio tray pack, Navilyst 3mm J, Pulse Oximetry and ACIST tubing and transducer cedwards 08:45 AM IV Supplies used: J loop Angio Cath. cedwards 08:45 AM Hair removed from procedure site in procedure lab using clippers. Right wrist prepped with Chloraprep by Marta Morton (Margarette), then patient was draped. Skin intact. cedwards 08:45 AM Physician arrived 08:45 cedwards 08:45 AM Meet and greet completed cedwards 08:45 AM Sign in performed according to hospital policy. cedwards 08:45 AM Procedure start 08:45 cedwards 08:46 AM Time: 08:46 Patient comfortable and pain free: Yes cedwards 08:46 AM Time: 08:46LOC: 5 = Fully awake and oriented or at pre-proc level cedwards 08:46 AM Clinical Presentation: Non-STEMI cedwards 08:46 AM Case Start 08:47 AM [ Start or Stop Vital ] 08:47 AM Vitals capture started with the following parameters, Patient=Adult, Interval=5 min, Initial Hyyifvdr=868 mmHg, Deflation Rate=3 mmHg, Cuff placed on Right Arm 08:47 AM Recorded ECG: HR=73 Condition=Condition 1 08:48 AM HR=70 bpm, LIXU=063/83 mmhg, SpO2=98.0 %, Resp=16 B/min 08:48 AM Time: 08:48 Oxygen on at 2 L/min per nasal cannula by Tiana Abbott RN cedwards 08:48 AM Tiana Abbott RN Position: Anatomy Teacher Time in: 08:48 cedwards 08:48 AM Yared Perales RN Position: Monitor Time in: 08:48 cedwards 08:49 AM Marta Morton (R) Position: Scrub Time in: 08:48 cedwards 08:49 AM Time: 08:49 Versed 2 mg Intravenous Given by Tiana Abbott RN cedwards 08:49 AM Time: 08:49 Fentanyl 50 mcg Intravenous Given by Tiana Abbott RN cedwards 08:53 AM HR=69 bpm, XKEX=530/75 mmhg, SpO2=93.0 %, Resp=12 B/min, Comment=NSR 08:58 AM Time out performed according to hospital policy cedwards 08:58 AM HR=69 bpm, NJOQ=829/73 mmhg, SpO2=93.0 %, Resp=22 B/min 08:58 AM Time: 08:58 3 ml Lidocaine 2% to right radial Subcutaneous Given by Hao Castañeda MD, [facility] cedwards 08:59 AM Access obtained by percutaneous puncture. 5/6Fr 10cm Terumo Glidesheath sheath placed in right Radial artery. [id number] cedwards 08:59 AM Time: 08:59 Patient given 4,000 units Heparin, 200 mcg Nitroglycerin, and 2.5 mg Verapamil Intraarterial by Hao Castañeda MD, [facility]. This is given to reduce risk of vessel spasm and thrombosis. cedwards 09:00 AM 5Fr Francisco Radial catheter inserted over the wire [facility] cedwards 09:00 AM Time: 09:00 Versed 1 mg Intravenous Given by Tiana Abbott RN cedwards 09:01 AM Time: 09:01 Fentanyl 25 mcg Intravenous Given by Tiana Abbott RN c[place] 09:01 AM Time: 08:46LOC: 4 = Oriented but drowsy cedwards 09:01 AM Time: 08:46 Patient comfortable and pain free: Yes cedwards 09:02 AM LCA angiography performed in multiple views. cedwards 09:03 AM HR=65 bpm, HCJO=897/85 mmhg, SpO2=92.0 %, Resp=23 B/min 09:04 AM RCA angiography performed in multiple views. cedwards 09:05 AM Catheter removed cedwards 09:06 AM Coronary Dominance: right cedwards 09:07 AM Recorded Pressure: LV, HR=72, Condition=Condition 1 (Left Ventricle) LV 135/3/19 09:07 AM 5Fr Pigtail catheter inserted over the wire [facility] cedwards 09:08 AM Catheter selectively placed in left ventricle cedwards 09:08 AM Pressures only cedwards 09:08 AM HR=68 bpm, QSCZ=798/63 mmhg, SpO2=95.0 %, Resp=17 B/min 09:08 AM 6Fr JR 4 Runway guide catheter was used to cannulate the PCI vessel successfully. reused? No cedwards 09:09 AM Pressure channel 1 zero failed. 09:09 AM Pressure channel 1 zeroed. 09:09 AM Recorded Pressure: LV, Ao, HR=68, Condition=Condition 1 (Left Ventricle) LV 163/16/33, (Aorta) Ao 137/50/87 09:10 AM .014 [place] 190cm guide wire across target lesion- successful. reused? No cedwards 09:10 AM Inflation device was opened. cedwards 09:11 AM Time: 09:11 Aggrastat Bolus: 58.5 ml Intravenous Given by Tiana Abbott RN Brooks pump cedwards 09:11 AM Time: 09:11 Fentanyl 25 mcg Intravenous Given by Tiana Abbott RN cedwards 09:12 AM Recorded Pressure: Ao, HR=65, Condition=Condition 1 (Aorta) Ao 70/17/39 09:12 AM Recorded Pressure: Ao, HR=65, Condition=Condition 1 (Aorta) Ao 136/71/95 09:13 AM HR=66 bpm, JELO=241/69 mmhg, SpO2=97.0 %, Resp=15 B/min 09:13 AM Time: 09:13 Aggrastat 12.5mg/250ml 21 ml Intravenous Given by Tiana Abbott RN Brooks pump cedwards 09:13 AM At 09:13 the ACT was 159 seconds. cedwards 09:14 AM 2.25mm x 20mm Synergy drug-eluting stent across target lesion- successful Lot #[id number] cedwards 09:14 AM Time: 09:14 Heparin 3000 units Intravenous Given by Tiana Abbott RN cedwards 09:15 AM Stent deployed @ 12 arthur for 14 seconds cedwards 09:16 AM Time: 09:01 Patient comfortable and pain free: Yes cedwards 09:16 AM Time: 09:16 Nitroglycerin 200 mcg Intracoronary Given by Hao Castañeda MD cedwards 09:17 AM Stent delivery system removed intact. cedwards 09:18 AM Lesion found in Proximal RCA. Pre Stenosis: 80 Pre TRINITY Flow: 3: Complete and Brisk Flow/Perfusion cedwards 09:18 AM HR=68 bpm, CHXD=062/61 mmhg, SpO2=95.0 %, Resp=13 B/min 09:18 AM Lesion found in Distal RCA. Pre Stenosis: 80 Pre TRINITY Flow: 3: Complete and Brisk Flow/Perfusion cedwards 09:18 AM Lesion found in Proximal LAD. Pre Stenosis: 60 Pre TRINITY Flow: 3: Complete and Brisk Flow/Perfusion cedwards 09:19 AM 2.25mm x 32mm Synergy drug-eluting stent across target lesion- successful Lot #[id number] cedwards 09:19 AM Lesion found in Mid LAD. Pre Stenosis: 70 Pre TRINITY Flow: 3: Complete and Brisk Flow/Perfusion cedwards 09:20 AM Stent deployed @ 16 arthur for 22 seconds cedwards 09:20 AM Stent delivery system removed intact. cedwards 09:21 AM Time: 09:21 Nitroglycerin 200 mcg Intracoronary Given by Hao Castañeda MD cedwards 09:22 AM 2.25mm x 20mm stent balloon reinserted used to measure lesion cedwards 09:23 AM HR=66 bpm, ECFE=558/69 mmhg, SpO2=93.0 %, Resp=12 B/min 09:23 AM Stent balloon removed cedwards 09:24 AM 2.5mm x 28mm Synergy drug-eluting stent across target lesion- successful Lot #[id number] cedwards 09:25 AM Time: 09:24 Versed 1 mg Intravenous Given by Tiana Abbott RN cedwards 09:25 AM Time: 09:25 Fentanyl 25 mcg Intravenous Given by Tiana Abbott RN cedwards 09:25 AM Recorded Pressure: Ao, HR=65, Condition=Condition 1 (Aorta) Ao 125/85/103 09:26 AM Stent deployed @ 16 arthur for 26 seconds cedwards 09:27 AM Stent delivery system removed intact. cedwards 09:28 AM 2.5 mm x 20mm NC Emerge balloon across target lesion- successful. reused? No cedwards 09:28 AM HR=69 bpm, QDVO=203/69 mmhg, SpO2=93.0 %, Resp=20 B/min 09:29 AM Balloon inflated @ 16 arthur for 18 seconds cedwards 09:30 AM Balloon inflated @ 18 arthur for 10 seconds cedwards 09:30 AM Balloon inflated @ 18 arthur for 9 seconds cedwards 09:30 AM Balloon catheter removed intact. cedwards 09:31 AM Time: 09:31 Fentanyl 25 mcg Intravenous Given by Tiana Abbott RN cedwards 09:32 AM Guide wire removed intact. cedwards 09:33 AM HR=67 bpm, KFRY=972/50 mmhg, SpO2=96.0 %, Resp=13 B/min 09:33 AM Time: 09:33 Fentanyl 25 mcg Intravenous Given by Tiana Abbott RN cedwards 09:34 AM Guide catheter removed intact. cedwards 09:34 AM Time: 09:34 Nitroglycerin 150 mcg Intraarterial Given by Hao Castañeda MD cedwards 09:36 AM Procedure completed at 09:36 cedwards 09:36 AM Did you address TRINITY flow and Dominance? Yes cedwards 09:37 AM Sign out completed: Radiation Dose 917.87 mGy Fluoro Time: 6.9 Isovue 370 - 200ml contrast 75.5 ml given by Hao Castañeda MD, FAC. Complications: NoneCardiac Rehab Consult needed: YesConfirmed administered medications: No cedwards 09:37 AM Isovue 370 - 200ml,1 Bottle(s) used. cedwards 09:37 AM 10 ml air in Vasc Band. cedwards 09:37 AM Estimated Blood Loss: minimal cedwards 09:37 AM Post ECG NSR cedwards 09:38 AM Post Blood Pressure 125/85 cedwards 09:38 AM Information taught Cardiac Cath, PCI, and Vasc Band cedwards 09:38 AM Education needs Procedure, Plan of Care, and Disease Process cedwards 09:38 AM Learning barriers :None cedwards 09:38 AM Education Methods Verbal cedwards 09:38 AM Education evaluation Able to repeat information cedwards 09:38 AM Site status No bleeding/hematoma - Rt Wrist as reported by Tiana Abbott RN at 09:38 cedwards 09:39 AM Vitals capture stopped. 09:40 AM Time: 09:39 Brilinta 180 mg Orally Given by Tiana Abbott RN cedwards 09:40 AM Plavix, Effient or Brilinta given Yes cedwards 09:40 AM No Family cedwards 09:40 AM Fluoro Time: 6.9 cedwards 09:41 AM Isovue 370 - 200ml contrast 75.[address] Castañeda. cedwards 09:41 AM Radiation Dose 917.87 mGy cedwards 09:43 AM Lesion found in Mid RCA. Pre Stenosis: 70 Pre TRINITY Flow: 3: Complete and Brisk Flow/Perfusion cedwards 10:01 AM Patient out of room: 09:50 cedwards 10:02 AM Report given to RN Pt taken to Room #22. 09:50 cedwards Complications Complication None Hemodynamics Pressures Site Systolic/A Wave Diastolic/V Wave Mean LV 135 3 19 LV 163 16 33 AO 137 50 87 AO 70 17 39 AO 136 71 95 AO 125 85 103 Post Procedure Information Blood Pressure: 125/85 mmHg Rhythm: NSR Closure Device Time Device Success/Fail 07/18/2017 9:45:00 AM Site Checks Time Location Status Staff Sheath In? Note 09:38 AM Rt Wrist No bleeding/hematoma Tiana Abbott RN Pulses Time Site Pre-Procedure Post-Procedure Note Bilateral DP & PT 2+ Bilateral radial 2+ Updated by Yared Perales RN on 07/18/2017 10:02:25 AM electronically signed on 07/18/2017 10:03:29 AM with status of Final
[2017-07-18] MEDS: Famotidine 20 MG TABLET PO SCH ×2 (10:13→20:39)
[2017-07-18] MEDS: Aspirin 81 MG TAB.CHEW PO SCH (10:13)
--- NOTE | 2017-07-18 13:31 | Internal Med Progress Note ---
Date of Encounter: 07/18/17 Time of Encounter: 13:28 - Assessment and plan (1) NSTEMI (non-ST elevated myocardial infarction) Current Visit: Yes Status: Acute Assessment and plan: troponin peaked at 17. 5 [facility] with intestinal PCI to RCA LOREN 3 overlapping. Cont ASA, brilinta, statin, BB. TTE pending (2) COPD (chronic obstructive pulmonary disease) Current Visit: Yes Status: Acute Assessment and plan: presented with chest pain or shortness of breath. [facility] as noted above. Still with persistent dyspnea post catheterization. 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 Low suspicion for pulmonary embolism however will check CTA given hx VTE, persistent SOB. No wheezing to suggest COPD exacerbation. Qualifiers: COPD type: chronic bronchitis Qualified Code(s): J41.0 - Simple chronic bronchitis (3) Tobacco abuse Current Visit: Yes Status: Acute Assessment and plan: nicotine patch cessation recommended (4) HTN (hypertension) Current Visit: Yes Status: Acute Assessment and plan: per hx. BP controlled. Cont BP medications Qualifiers: Hypertension type: essential hypertension Qualified Code(s): I10 - Essential (primary) hypertension (5) DMII (diabetes mellitus, type 2) Current Visit: Yes Status: Acute Assessment and plan: per hx. Diet controlled. Hgb A1c pending Qualifiers: Diabetes mellitus senior living insulin use: without senior living use Qualified Code(s): E11.9 - Type 2 diabetes mellitus without complications (6) DVT prophylaxis Current Visit: Yes Status: Acute Assessment and plan: heparin - Time Spent With Patient Total time spent is greater than 50% in coordination of care (as documented) at patient's floor/unit and/or counseling patient: - Subjective Interval history: Seen and examined at bedside, patient is new to me. Information obtained from chart review and patient report. He just returned from left heart catheterization. Says he feels better overall but still having significant dyspnea. States his heart is taking in deep breath. No chest pain. - Constitutional Vitals: Temp Pulse Resp BP Pulse Ox 97.5 F L 56 14 119/66 100 07/18/17 11:24 07/18/17 11:24 07/18/17 11:24 07/18/17 11:24 07/18/17 11:24 General appearance: Present: mild distress (appears uncomfortable), A&O X 3, pleasant - Head Head exam: Present: atraumatic, normocephalic - Eye Eye exam: Present: PERRL, conjuntiva pink, sclera anicteric Pupils: Present: PERRL - Neck Neck exam general surgery: Present: supple, trachea midline. Absent: lymphadenopathy - Respiratory Respiratory exam: Present: CTAB. Absent: accessory muscle use, rales, rhonchi, wheezes - Cardiovascular Cardiovascular exam: Present: RRR, +S1, +S2. Absent: diastolic murmur, gallop, rubs, systolic murmur - GI/Abdominal GI/Abdominal exam: Present: normal bowel sounds, soft, no peritoneal signs. Absent: distended, tenderness - Extremities Exam Extremities exam: Present: warm, radial pulses palpable and symmetrical. Absent : calf tenderness, cyanotic, pedal edema - Neurological Exam Neurological exam: Present: CN II-XII intact, oriented X3, no focal deficits. Absent: pronater drift, facial droop, speech deficit - Skin Skin exam: Present: dry, intact Internal Medicine: Result - Labs CBC & Chem 7: 07/18/17 00:40 07/18/17 00:40 Labs: Cardiac Enzymes 07/18/17 Range/Units 07:42 Troponin I 17.32 H* (< 0.04) ng/mL - ABG Interpretation ABG results: PT/INR, D-dimer PT 11.1 Seconds (9.4-12.1) 07/18/17 00:40 D-Dimer 647 ng/mLFEU (0-500) H 07/18/17 00:40 - Impressions Impressions Chest X-Ray 07/18/17 23:22 IMPRESSION: Cardiomegaly with clear lungs. D/ / Tera Vieira MD / Tera Vieira MD Interpreting Provider: Tera Vieira MD Consult Discharge Plan - Plan Referrals: Ranjana Becerra INSTRUCTION ASSISTANT PRINCIPAL [Primary Care Provider] -
[2017-07-18] MEDS ORDERED: Isovue-370 500 ML INFUS..BTL IV ONE (13:41)
[2017-07-18] MEDS: *HR* Heparin 5,000 UNIT/ML VIAL SQ SCH ×2 (14:19→20:39)
--- NOTE | 2017-07-18 14:45 | Electrocardiograph Report ---
[place] [address] Test Date: 2017-07-18 Pat Name: Castro Piper Department: 104 Room: 3B22 Gender: M Platform Worker: JUN : 1945 Requested By: [id number] Order Number: [id number] Reading MD: Jenniffer Mayer Measurements Intervals [place] Rate: 76 P: 67 NH: 185 QRS: -53 QRSD: 119 T: -74 QT: 438 QTc: 468 Interpretive Statements SINUS RHYTHM LEFT ANTERIOR FASCICULAR BLOCK [QRS AXIS <= -45, QR IN I, RS IN II] LEFT VENTRICULAR HYPERTROPHY AND ST-T CHANGE [VOLTAGE CRITERIA PLUS ST/T ABNORMALITY] POSSIBLE ANTERIOR MYOCARDIAL INFARCTION [30 ms Q WAVE IN V3/V4, OR R < 0.2 mV IN V4], PROBABLY OLD Electronically Signed On 07-18-2017 14:43:58 EDT by Jenniffer Mayer
--- NOTE | 2017-07-18 14:45 | Electrocardiograph Report ---
[place] [address] Test Date: 2017-07-17 Pat Name: Castro Piper Department: 104 Room: 3B22 Gender: M Client Advocate: : 1945 Requested By: [id number] Order Number: [id number] Reading MD: Jenniffer Mayer Measurements Intervals [place] Rate: 102 P: 61 WA: 180 QRS: -53 QRSD: 118 T: 95 QT: 352 QTc: 411 Interpretive Statements SINUS TACHYCARDIA WITH OCCASIONAL VENTRICULAR PREMATURE COMPLEXES LEFT ANTERIOR FASCICULAR BLOCK [QRS AXIS <= -45, QR IN I, RS IN II] LEFT VENTRICULAR HYPERTROPHY AND ST-T CHANGE [VOLTAGE CRITERIA PLUS ST/T ABNORMALITY] POSSIBLE ANTERIOR MYOCARDIAL INFARCTION [30 ms Q WAVE IN V3/V4, OR R < 0.2 mV IN V4], PROBABLY OLD Electronically Signed On 07-18-2017 14:43:24 EDT by Jenniffer Mayer
[2017-07-18] MEDS: Insulin LISPRO 300 UNITS/3 ML VIAL SQ SCH (18:04)
[2017-07-18] MEDS: *HR* Ticagrelor 90 MG TABLET PO SCH (20:39)
[2017-07-18] MEDS ORDERED: Insulin LISPRO 300 UNITS/3 ML VIAL SQ SCH (21:00)
[2017-07-19] MEDS: Nitroglycerin 25 MG/250 ML INFUS..BTL IVC SCH (00:09)
[2017-07-19] MEDS ORDERED: Melatonin 3 MG TABLET PO ONE (01:17)
[2017-07-19 05:51] LABS: Basophils % 0.4 %; Eosinophils # 0.2 K/mcL (0.0-0.6); Eosinophils % 2.8 %; Hematocrit 36.6 % (37.5-50.1); Immature Granulocytes % 0.2 % (0-4); Lymphocytes # 1.8 K/mcL (0.6-4.6); Lymphocytes % 21.1 %; Mean Corpuscular HGB Conc 32.8 g/dL (31.6-35.5); Mean Corpuscular Hemoglobin 32.2 pg (28.0-33.3); Mean Corpuscular Volume 98.1 fL (83.0-100.0); Mean Platelet Volume 11.3 fL (9.4-12.4); Monocytes # 0.7 K/mcL (0.0-1.3); Neutrophils # 5.7 K/mcL (1.6-8.9); Platelet Count 139 K/mcL (140-400); Red Blood Count 3.73 M/mcL (4.19-5.50); Red Cell Distribution Width 13.9 % (11.5-14.5); Segmented Neutrophils % 67.5 %
[2017-07-19 06:12] LABS: BUN/Creatinine Ratio 14 (6-26); Blood Urea Nitrogen 15 mg/dL (8-23); Calcium 8.6 mg/dL (8.6-10.3); Carbon Dioxide 23 mEq/L (23-29); Chloride 106 mEq/L (98-107); Glucose 149 mg/dL (70-105); Osmolality,Calculated 290 (280-300); Potassium 4.1 mEq/L (3.5-5.1); Sodium 138 mEq/L (136-145); eGFR For African Americans > 60 (> 60); eGFR For Non-African Americans > 60 (> 60)
[2017-07-19] MEDS: *HR* Heparin 5,000 UNIT/ML VIAL SQ SCH (06:56)
[2017-07-19] MEDS: Insulin LISPRO 300 UNITS/3 ML VIAL SQ SCH ×2 (09:10→12:01)
--- NOTE | 2017-07-19 09:19 | Discharge Summary ---
- NOTES TO OUTPATIENT PROVIDER Notes to Outpatient Provider: And follow-up within one week Orders not resulted at time of discharge: Pending orders 07/18/17 09:41 ECG 12 lead ECG [ECG] Stat 07/19/17 06:00 ECG 12 lead ECG [ECG] AM 0600 Date of Encounter: 07/19/17 Time of Encounter: 09:19 - Discharge Diagnosis (1) NSTEMI (non-ST elevated myocardial infarction) Priority: Primary Status: Acute Assessment and Plan: troponin peaked at 17. 5 [facility] with successful PCI to RCA with LOREN 3 overlapping. Cont ASA, brilinta, ARGENIS, statin. Defer BB to cardiology as BP soft/ borderline. Follow-up with Cardiology outpatient (2) COPD (chronic obstructive pulmonary disease) Priority: Primary Status: Acute Assessment and Plan: presented with chest pain and shortness of breath. [facility] as noted above. No wheezing to suggest COPD exacerbation. Chest CTA negatuve for pulmonary embolism , pneumonia or dissection. Suspect SOB secondary to CAD. Qualifiers: COPD type: emphysema Emphysema type: unspecified Qualified Code(s): J43.9 - Emphysema, unspecified (3) Tobacco abuse Priority: Primary Status: Acute Assessment and Plan: current smoker. Cessation advised. (4) HTN (hypertension) Priority: Primary Status: Acute Assessment and Plan: per hx. BP controlled. Cont BP medications Qualifiers: Hypertension type: essential hypertension Qualified Code(s): I10 - Essential (primary) hypertension (5) DMII (diabetes mellitus, type 2) Priority: Primary Status: Acute Assessment and Plan: per hx. Hgb A1c 7.2%. Patient reported diet controlled. Advised on lifestyle/ dietary changes. Can follow-up with PCP for further discussion on starting oral hypoglycemic/insulin. Qualifiers: Diabetes mellitus longterm insulin use: without manager terminal use Diabetes mellitus complication status: without complication Qualified Code(s): E11.9 - Type 2 diabetes mellitus without complications Hospital course: Please see assessment and plan for Hospital course Discharge discussed with: patient (Seen and examined at bedside. He still has some shortness of breath but overall improved. No chest pain. Appears to be anxious. Reported to RN that he needs to get home to be with his daughter who has diabetes and multiple other medical problems. Discussed elevated A1c with him and he would prefer dietary/lifestyle modifications and he will follow-up with his PCP regarding possibly initiating insulin and/or metformin.) - Time Spent with Patient Total time spent providing and/or coordinating discharge services: - Discharge Medications Prescriptions: Aspirin 81 mg PO DAILY #30 tab.chew Ticagrelor [Brilinta] 90 mg PO BID #60 tablet Home Medications: Albuterol Sulfate [Albuterol Inhaler] 2 puff IH Q4H PRN 07/18/17 [History] Atorvastatin [Lipitor] 40 mg PO HS 07/18/17 [History] Citalopram Hydrobromide [Citalopram HBr] 40 mg PO DAILY 07/18/17 [History] Dicyclomine [Bentyl] 10 mg PO QID 07/18/17 [History] HYDROcodone/Acet 7.5/325 mg [[place] 7.5-325 mg] 1 tab PO QID 07/18/17 [History] Lisinopril 2.5 mg PO DAILY 07/18/17 [History] Aspirin 81 mg PO DAILY #30 tab.chew 07/19/17 [Rx] Ticagrelor [Brilinta] 90 mg PO BID #60 tablet 07/19/17 [Rx] Allergies/Adverse Reactions: 3 Allergy/AdvReac Type Severity Reaction Status Date / Time Penicillins Allergy Itching Verified 07/18/17 08:36 Date of admission: 07/18/17 02:00 Primary care physician: Ranjana Becerra CNP Consults: 07/18/17 09:41 Consult to Cardiac Rehabilitation-Phase1 [CONS] Routine Comment: Reason for Consult: post op PCI Call Completed: Yes Discharging clinician: Gisselle Man Anticipated date of discharge: 07/19/17 - Constitutional Vitals: Temp Pulse Resp BP Pulse Ox 97.9 F 56 14 151/78 98 07/19/17 07:06 07/19/17 07:06 07/19/17 07:06 07/19/17 07:06 07/19/17 07:06 General appearance: Present: A&O X 3, pleasant - Head Head exam: Present: atraumatic, normocephalic - Eye Eye exam: Present: PERRL, conjuntiva pink, sclera anicteric Pupils: Present: PERRL - Neck Neck exam general surgery: Present: supple, trachea midline. Absent: lymphadenopathy - Respiratory Respiratory exam: Present: CTAB. Absent: accessory muscle use, rales, rhonchi, wheezes - Cardiovascular Cardiovascular exam: Present: RRR, +S1, +S2. Absent: diastolic murmur, gallop, rubs, systolic murmur - GI/Abdominal GI/Abdominal exam: Present: normal bowel sounds, soft, no peritoneal signs. Absent: distended, tenderness - Extremities Exam Extremities exam: Present: warm, radial pulses palpable and symmetrical. Absent : calf tenderness, cyanotic, pedal edema - Neurological Exam Neurological exam: Present: CN II-XII intact, oriented X3, no focal deficits. Absent: pronater drift, facial droop, speech deficit - Skin Skin exam: Present: dry, intact - Patient Status Disposition: Home, Self-Care Condition: Good Functional capacity at discharge: independent ambulation Overall status at discharge: patient is back to baseline - Discharge Instructions Instructions: Aspirin (By mouth), Ticagrelor (By mouth), Coronary Artery Disease (DC) Follow Up With: Ranjana Becerra CNP [Primary Care Provider] - 07/25/17 1:00 pm (Please call for follow-up appointment within 1 week) Forms: ED Satisfaction Letter Additional Instructions: RISK FACTORS: STOP SMOKING: If you smoke, STOP. Smoking or tobacco use significantly increases your risk of heart disease because nicotine causes the arteries to narrow or constrict. It also causes fats to stick to the artery. Your chances of having a heart attack are greatly increased if you continue to smoke. For more information, call the education line for smoking cessation 8-555-WESWKOE EAT A LOW FAT/CHOLESTEROL/SODIUM DIET: This diet may help reduce your chances of having a heart attack. LIFTING: With affected extremity: Avoid bending, pushing off and lifting more than 2 pounds for 24 hours The following 48 hours, avoid lifting anything more than 5 pounds Avoid strenuous activity or repetitive motions ACTIVITY: You may walk or climb stairs as tolerated You can resume sexual activity as tolerated In general, you are encouraged to engage in a minimum of 30 minutes or more of moderate intensity physical activity, such as brisk walking, daily or at least 3 -4 times weekly BATHING Do not submerge the site into water (bath tub, hot tub, swimming pool, dishes) for 1 week. This can be a source for infection into the blood stream. You may shower after 24 hours SITE CARE: After 24 hours, you may remove the dressing and leave the site open to air. Keep the site clean and dry. Clean gently and pat dry. You can expect bruising and tenderness that gradually resolve within a week or two. Return to work as instructed per your physician Resume driving as instructed per physician Keep all scheduled follow up appointments Resume medications as instructed IMPORTANT: If prescribed a Platelet Aggregation Inhibitor such as, Plavix, Brilinta or Effient: Duration of therapy is minimum one year These medications are often used in combination with Aspirin in prevention of future heart attacks Never discontinue unless consult with your Billet Heater STROKE (CVA) Risk factors for a stroke are: Age, cigarette smoking, diabetes, excessive alcohol consumption, family history, high blood pressure, overweight, physical inactivity, prior stroke, heart attack, diagnosis of carotid artery stenosis or other artery disease. Warning signs: Sudden numbness or weakness of the face, arm or leg; especially on one side of the body, sudden confusion, trouble speaking or understanding, sudden trouble seeing in one or both eyes, sudden trouble walking, dizziness, loss of balance or coordination, sudden severe headache with no cause. Call 911 or go to the Emergency Room. CONGESTIVE HEART FAILURE: If you have been diagnosed with Congestive Heart Failure (CHF) and your symptoms return, make an appointment with your physician Weigh yourself daily. Notify your physician if you have a weight gain of two or more pounds in one day or five or more pounds in one week. If you experience any difficulty breathing, please call 911 BLEEDING: Although the risk of bleeding is minimal, it can happen. If you have any bleeding from the site, apply firm pressure above the puncture site for 10-15 minutes. If the bleeding does not stop, continue manual pressure and call 911 Contact [facility] ( ) if: You develop a fever greater than 101 degrees Fahrenheit Your site becomes reddened or has any drainage You have an increase in pain or burning at the site or if a large knot forms at the site. If you experience chest pain, shortness of breath, dizziness, or extreme tiredness, stop the activity and rest. Please notify [facility] office if you experience any of these symptoms and they are not relieved by rest please call 911! - Diet and Activity Activity: increase activity as tolerated Diet: diabetic diet, low fat, low cholesterol
[2017-07-19] MEDS: Famotidine 20 MG TABLET PO SCH (10:17)
[2017-07-19] MEDS: *HR* Ticagrelor 90 MG TABLET PO SCH (10:17)
[2017-07-19] MEDS: Nicotine 21 MG PATCH.TD24 TD SCH (10:17)
[2017-07-19] MEDS: Aspirin 81 MG TAB.CHEW PO SCH (10:17)
[2017-07-19 11:36] VITALS: BP 166/71
--- NOTE | 2017-07-19 13:12 | Cardiology Progress Note ---
Date of Encounter: 07/19/17 Time of Encounter: 10:00 Assessment and Plan (1) NSTEMI (non-ST elevated myocardial infarction) Status: Acute Per cardiology: -C/o continued chest pressure, diaphoresis, and SOB. -S/p [facility] with 3 LOREN to RCA. Has remaining moderate-severe disease. -Denies chest pain. Reports shortness of breath at baseline. -ON asa, brilinta (assistance card given). Educated on dual anti-platelet therapy uninterrupted for at least one year. Patient states understanding. -On statin. -Right radial access site without hematoma or ecchymosis. Right groin access site management education reviewed with patient. -Cardiology will sign off and will follow in outpateint setting. Follow up set. (2) Cardiomyopathy Status: Acute Per cardiology: -TTE with LVEF 40%, global hypokinesis, mild diastolic dysfunction, mild- moderate AR, moderate , mild MR, mild TR. -Previous TTE 2013 with LVEF 60-65%. -Euvolemic on exam. -Not on beta rema due to bradycardia during hospital admsision. -Will start ezra inhibitor, of note, was discharged prior to starting. Will contact pateint and send in RX in outpateint setting. -Consider addition of BB in outpatient setting if HR remains stable. Qualifiers: Cardiomyopathy type: unspecified Qualified Code(s): I42.9 - Cardiomyopathy , unspecified (3) Tobacco abuse Status: Acute Per cardiology: -Smoking cessation discussed. Smokes 1.5 pk day for 56 years. Discussion w patient/family: The assessment and plan as outlined above was discussed with the patient who expressed understanding and agreement. All questions were answered. Thank you for involving us in the care of your patient. Please call with any questions. Discussed and reviewed with . Subjective Principal diagnosis: NSTEMI Interval history: Patient is s/p [facility] yesterday. Denies chest pain. Reports shortness of breath, however states is at his baseline. Patient tearful upon my exam today. States he is just worried about his health. Objective Vital Signs, Last 4 Hours Temp Pulse Resp BP Pulse Ox 07/19/17 11:35 97.6 F 65 14 166/71 97 07/19/17 10:15 98 General: Conversant, No Apparent Distress HEENT: Atraumatic, Normocephaly, Mucus Membranes Moist Neck: No JVD, Normal carotid pulses Cardiac: Reg Rate and Rhythm, Normal S1 and S2, No Murmur Lungs: Normal Breath Sounds, No Wheeze, Rales, Rhonchi Neuro: Alert and responsive, No focal deficits noted Abdomen: Soft, Non-Tender Skin: No rashes noted on visualized skin Musculoskeletal: No Chest Wall Tenderness Extremities: No Clubbing, No Cyanosis, No Edema, Normal Pulses Results 07/19/17 04:44 07/19/17 04:44 Lab Results Impressions Echocardiogram 07/18/17 01:40 Impressions: LVEF 40%. Global LV systolic dysfunction. Normal LV chamber size, wall thickness. Mild left ventricular diastolic dysfunction. Mild-moderate aortic regurgitation. Moderate aortic stenosis. Mild mitral regurgitation. Mild tricuspid regurgitation. No pulmonary hypertension. Left Ventricular Wall Motion: Rest Echo Findings The apex, apical inferior, mid inferior, basal inferior, apical anterior, mid anterior, basal anterior, apical septal, mid inferior septal, basal inferior septal, apical lateral, mid anterior lateral, basal anterior lateral, mid anterior septal, mid inferior lateral, basal anterior septal and basal inferior lateral link were hypokinetic. Findings: Study Quality * Technically adequate exam. ECG Findings * Normal sinus rhythm. Left Ventricle * LVEF 40%. * Normal LV chamber size, wall thickness. * Mild left ventricular diastolic dysfunction. Right Ventricle * Normal right ventricular structure and function. Left Atrium * Moderately dilated left atrium. Right Atrium * Normal right atrial size. Aortic Valve * Aortic valve not well visualized. * Mild-moderate aortic regurgitation. * Moderate aortic stenosis. Mitral Valve * Normal mitral valve structure. * No mitral stenosis. * Mild mitral regurgitation. Tricuspid Valve * Tricuspid valve not well visualized. * Mild tricuspid regurgitation. Pulmonic Valve * Pulmonic valve is not well visualized. * No pulmonic stenosis. * No pulmonic regurgitation. Pulmonary Artery * Pulmonary artery not well visualized. Aorta * Normally sized aortic root. Pericardium * The pericardium appears normal. Interatrial Septum * No evidence of PFO by color Doppler. IVC * The IVC is not well evaluated. Chest CTA 07/18/17 13:41 IMPRESSION: No evidence of pulmonary embolism or acute pulmonary abnormality. D/ / Leta Walters MD / Leta Walters MD Interpreting Provider: Leta Walters MD Laboratory Tests 07/19/17 07/19/17 04:44 04:44 Hgb 12.0 L Creatinine 1.07 - Imaging and Cardiology Chest Xray: report reviewed Echo: report reviewed Cardiac cath: report reviewed - EKG Interpretation EKG results cardiology: other (Telemetry reviewed with average HR previous 12 hours noted to be 65, SR.) Consult Discharge Plan - Plan Instructions: Aspirin (By mouth), Ticagrelor (By mouth), Coronary Artery Disease (DC) Additional Instructions: RISK FACTORS: STOP SMOKING: If you smoke, STOP. Smoking or tobacco use significantly increases your risk of heart disease because nicotine causes the arteries to narrow or constrict. It also causes fats to stick to the artery. Your chances of having a heart attack are greatly increased if you continue to smoke. For more information, call the education line for smoking cessation 9-066-DOWIGLU EAT A LOW FAT/CHOLESTEROL/SODIUM DIET: This diet may help reduce your chances of having a heart attack. LIFTING: With affected extremity: Avoid bending, pushing off and lifting more than 2 pounds for 24 hours The following 48 hours, avoid lifting anything more than 5 pounds Avoid strenuous activity or repetitive motions ACTIVITY: You may walk or climb stairs as tolerated You can resume sexual activity as tolerated In general, you are encouraged to engage in a minimum of 30 minutes or more of moderate intensity physical activity, such as brisk walking, daily or at least 3 -4 times weekly BATHING Do not submerge the site into water (bath tub, hot tub, swimming pool, dishes) for 1 week. This can be a source for infection into the blood stream. You may shower after 24 hours SITE CARE: After 24 hours, you may remove the dressing and leave the site open to air. Keep the site clean and dry. Clean gently and pat dry. You can expect bruising and tenderness that gradually resolve within a week or two. Return to work as instructed per your physician Resume driving as instructed per physician Keep all scheduled follow up appointments Resume medications as instructed IMPORTANT: If prescribed a Platelet Aggregation Inhibitor such as, Plavix, Brilinta or Effient: Duration of therapy is minimum one year These medications are often used in combination with Aspirin in prevention of future heart attacks Never discontinue unless consult with your Knot Cutter STROKE (CVA) Risk factors for a stroke are: Age, cigarette smoking, diabetes, excessive alcohol consumption, family history, high blood pressure, overweight, physical inactivity, prior stroke, heart attack, diagnosis of carotid artery stenosis or other artery disease. Warning signs: Sudden numbness or weakness of the face, arm or leg; especially on one side of the body, sudden confusion, trouble speaking or understanding, sudden trouble seeing in one or both eyes, sudden trouble walking, dizziness, loss of balance or coordination, sudden severe headache with no cause. Call 911 or go to the Emergency Room. CONGESTIVE HEART FAILURE: If you have been diagnosed with Congestive Heart Failure (CHF) and your symptoms return, make an appointment with your physician Weigh yourself daily. Notify your physician if you have a weight gain of two or more pounds in one day or five or more pounds in one week. If you experience any difficulty breathing, please call 911 BLEEDING: Although the risk of bleeding is minimal, it can happen. If you have any bleeding from the site, apply firm pressure above the puncture site for 10-15 minutes. If the bleeding does not stop, continue manual pressure and call 911 Contact [facility] ( ) if: You develop a fever greater than 101 degrees Fahrenheit Your site becomes reddened or has any drainage You have an increase in pain or burning at the site or if a large knot forms at the site. If you experience chest pain, shortness of breath, dizziness, or extreme tiredness, stop the activity and rest. Please notify [facility] office if you experience any of these symptoms and they are not relieved by rest please call 911! Referrals: Ranjana Becerra CNP [Primary Care Provider] - 07/25/17 1:00 pm (Please call for follow-up appointment within 1 week) Prescriptions: Aspirin 81 mg PO DAILY #30 tab.chew Ticagrelor [Brilinta] 90 mg PO BID #60 tablet
== END 2017-07-19 13:02 | disposition home or self-care (01) | DRG 247 ==
LOC: 3BNU 23:13 → EMEROO 23:13 → 3BNU 07-18 01:45
PROVIDERS: ADMIT Internal Medicine Hematology & Oncology; ATTEND Internal Medicine Hematology & Oncology